=== PATIENT | male | born 1955 | race Caucasian/White ===

== ENCOUNTER 2018-07-07 06:16 | Inpatient (IN) ==
[~2018-07-07 06:16] MED LIST: Bacitracin 50,000 UNIT, Polymyxin B Sulfate 500,000 UNIT, Sodium Chloride IRRigation 1,... IR ONE
[2018-07-07] MEDS ORDERED: CeFAZolin Syr 2,000MG/20 ML 2,000 MG/20 ML SYRINGE IVPB ONE (06:40)
[2018-07-07] MEDS ORDERED: Albuterol 2.5 MG/3 ML NEBULIZER IH ONE (06:40)
[2018-07-07] MEDS: Ringers Solution, Lactated 1,000 ML IVC SCH ×3 (07:07→20:49)
[2018-07-07] MEDS ORDERED: Lidocaine -MPF 4% 5 ML AMPUL ONE (07:12)
[2018-07-07] MEDS ORDERED: *HR* Midazolam HCl 2 MG/2 ML VIAL ONE (07:15)
[2018-07-07] MEDS ORDERED: Ondansetron 4 MG/2 ML VIAL ONE (07:15)
[2018-07-07] MEDS ORDERED: *HR* FentaNYL (PF) 100 MCG/2 ML VIAL ONE (07:15)
[2018-07-07] MEDS ORDERED: Dexamethasone 4 MG/ML VIAL ONE (07:15)
[2018-07-07] MEDS ORDERED: *HR* Rocuronium Bromide 50 MG/5 ML VIAL ONE ×2 (07:15→09:09)
[2018-07-07] MEDS ORDERED: *HR* Propofol 200 MG/20 ML VIAL IVP ONE (07:15)
[2018-07-07] MEDS ORDERED: *HR* Succinylcholine 200 MG/10 ML VIAL IVP ONE (07:15)
[2018-07-07] MEDS ORDERED: Lidocaine -MPF 2% 2 ML VIAL ONE (07:15)
[2018-07-07] MEDS ORDERED: Neostigmine Methylsulfate 3 MG/3 ML SYRINGE ONE (07:15)
[2018-07-07] MEDS ORDERED: *HR* Remifentanil 1 MG VIAL IVP ONE (07:26)
--- NOTE | 2018-07-07 07:40 | Anesthesia Evaluation PreOp ---
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) Other Medical History: Diabetes Type II (POORLY CONTROLLED - HbA1c 11.5), GERD (CONTROLLED) Alcohol Use: none Drug use: none Medications and Allergies Atorvastatin [Lipitor] 20 mg PO HS 04/03/16 [History] Insulin Glargine [Lantus] 40 unit SQ BID 04/03/16 [History] Losartan Potassium [Cozaar] 100 mg PO DAILY 04/03/16 [History] Ticagrelor [Brilinta] 90 mg PO BID 04/03/16 [History] amLODIPine [Norvasc] 10 mg PO DAILY 04/03/16 [History] metFORMIN [Glucophage] 1,000 mg PO BIDWM 04/03/16 [History] Aspirin [Lo-Dose Aspirin EC] 81 mg PO DAILY 07/07/18 [History] Meloxicam [Mobic] 15 mg PO DAILY 07/07/18 [History] Omeprazole [PriLOSEC] 40 mg PO DAILY 07/07/18 [History] Rivaroxaban [Xarelto] 20 mg PO DAILY 07/07/18 [History] Allergy/AdvReac Type Severity Reaction Status Date / Time No Known Allergies Allergy Verified 06/14/18 10:22 - Meds/Allergy Pre-op Review Medications Reviewed: Yes Allergies Reviewed: Yes Beta Blockers on Current Med List: No Anesthesia Results - Labs Laboratory Tests 04/18/16 06/14/18 06/14/18 15:06 11:10 11:10 Hgb 14.2 Hct 43.4 Plt Count 246 PT 9.9 INR 0.9 APTT 33.4 Sodium Potassium Creatinine Est GFR (Non-Af Amer) Hemoglobin A1c Calcium 9.5 06/14/18 06/14/18 11:10 11:10 Hgb Hct Plt Count PT INR APTT Sodium 137 Potassium 3.8 Creatinine 0.81 Est GFR (Non-Af Amer) > 60 Hemoglobin A1c 11.5 H Calcium Anesthesia Exam O2 Sat Height 1.6 m Height 1.6 m Weight 85.275 kg Weight 85.275 kg O2 Sat by Pulse Oximetry 97 Vital Signs Temp Pulse Resp BP Pulse Ox 98.1 F 100 18 128/85 97 07/07/18 06:51 07/07/18 06:51 07/07/18 06:51 07/07/18 06:51 07/07/18 06:51 Weight: 85 kg - BMI 33 NPO (# of Hours): >MN - HEENT Mallampati: II (BEARDED) Teeth: Missing, Poor dentition (EXTREMELY POOR DENTITION, MULTIPLE CARIES, MULTIPLE BROKEN TEETH) Oral Opening: Greater than 3 - AUTOMOTIVE VEHICLE INSPECTOR LOC: Oriented AUTOMOTIVE VEHICLE INSPECTOR Motor: Normal RUE, Normal LUE, Normal RLE, Normal Face, Deficit LLE (? MILD MOTOR WEAKNESS) - Cardiac Rhythm: Regular - Pulmonary Breath Sounds: bilateral Clear Respiratory Effort: Symmetrical Anesthesia Assess/Plan ASA Score: 4 Anesthetic Plan: General Monitoring Plan: Standard Monitors, A-Line (POSSIBLE) Recovery Plan: PACU Anes Supervising Prov Stmt: DISCUSSED CV RISK. DISCUSSED DENTAL INJURY.
[2018-07-07] MEDS ORDERED: Acetaminophen IV 1,000 MG/100 ML INFUS..BTL ONE (07:51)
[2018-07-07] MEDS ORDERED: *HR* Methadone 10 MG TABLET PO ONE ×2 (08:03→08:06)
--- NOTE | 2018-07-07 08:13 | History & Physical Report ---
Date of Encounter: 07/07/18 Time of Encounter: 08:05 24 Hour HP Update - Instructions Instructions: If the History and Physical is less than 30 days old and was completed prior to A.M. admission and or procedure and has NOT been updated on calendar day of procedure please complete this update prior to performing procedure. - Update Patient reports changes in Medical Condition: No Changes in examination, assessment, or condition: No Changes in Medication: No Preop tests/diagnostics Reviewed: Yes Pre-Op MRSA Screen: Negative Surgery Remains Indicated: Yes Consent for Planned Operative Procedure(s) Verified: Yes - Pre-Operative Checklist Preoperative Checklist Indicated: No Prophylactic Antibiotic Ordered: Yes Home Medications Include Beta Felix: No Beta Felix Taken Today (Day of Surgery): No Beta Felix Taken Yesterday (Day Prior to Surgery): No Is VTE Prophylaxis Indicated?: Yes
[2018-07-07] MEDS ORDERED: *HR* PHENYLEPHRINE 1,000 MCG/10 ML SYRINGE IVP ONE ×2 (08:31→11:37)
[2018-07-07] MEDS ORDERED: EPHEDrine 50 MG/ML VIAL ONE (08:41)
[2018-07-07] MEDS ORDERED: *HR* OxyCODONE Immed Rel 5 MG TABLET PO PRN (08:55)
[2018-07-07] MEDS ORDERED: Ipratropium/Albuterol Neb 3 ML IH ONE (08:55)
[2018-07-07] MEDS ORDERED: Ketorolac 30 MG/ML VIAL IVP ONE (08:55)
[2018-07-07] MEDS ORDERED: Insulin LISPRO 300 UNITS/3 ML VIAL SQ SCH (12:00)
--- NOTE | 2018-07-07 12:19 | Orthopedic Operative Note ---
Date of procedure: 07/07/18 Pre-op diagnosis: Spondylolisthesis, lumbar stenosis, lumbar radiculopathy Post-op diagnosis: same Operation/Findings: Posterior lumbar interbody fusion L3-S1: The patient successfully underwent general endotracheal anesthesia. The patient was given antibiotics prior to the start of the procedure. Compression boots and stockings were used for deep vein thrombosis prophylaxis. A Poe catheter was placed. Leads for neuro monitoring were placed on the upper and lower extremities. This included the cranium. The neuro monitoring personnel confirmed there were satisfactory readings prior to the start of the procedure. The patient was turned prone on the Nicolas table. The back was prepped and draped in the usual sterile fashion. An incision was was marked and centered over the involved L3-S1 levels in the mid line. The incision was deepened through the lumbar fascia. Bovie cautery and Lyn elevators were used to reflect the paraspinal musculature at the lateral extent of the transverse processes of the involved L3, L4, L5, and S1 levels. Rose clamps were placed over the spinous L4 and L5 processes. An intraoperative lateral fluorograph was obtained. A conversation was held between the surgeon and radiologist and both confirmed we had the correct operative levels. We then placed pedicle screws in standard fashion with the aid of fluoroscopy and anatomic landmarks. Briefly a starter awl was used. A gearshift was subsequently used to enter the corporate pilot hole via a transpedicular route into the vertebral body. The corporate pilot hole was tapped with an undersized instrument, and subsequently six 6.5 x 40 mm pedicle screws were placed bilaterally at L5 and S1 levels, and unilateral screws were placed on the right at L3 and on the left at L4. The screws were tested with the aid of the neurologic monitoring staff via pedicle screw stimulation. All reading suggested there was no significant cortical wall breech. The screws were also evaluated fluoro- graphically and appeared to be in satisfactory position. We then turned our attention to the decompression portion of the procedure. We removed the supraspinous and interspinous ligaments and subsequently the insertion of the ligamentum flavum on the undersurface of the proximal L5 lamina was dislodged with a curette. We then removed the ligamentum flavum as well as undercut the L5-S1 facets at this L5-S1 level to decompress the lateral recesses. We also performed a L5 laminectomy. We proceeded proximally to the L4-5 level and removed the supraspinous ligaments, undercut the L4-5 facets, did partial medial facetectomies, and performed an L4 laminectomy. We then moved proximally to the L3-4 level and again decompressed this level by undercutting the facets, removing the supraspinous and interspinous ligaments, and doing partial medial facetectomies. We also did a partial L3 laminectomy. After the decompression, which was over and above that which was required to place the interbody graft, the foramen and traversing roots at the L3-4, L4-5, and L5-S1 levels were found to be free and patent. We then protected the neural elements including the thecal sac and traversing nerve root on the right at L5- S1 with a dural retractor. We made an annulotomy into the L5-S1 disc space and then removed entire disc material using Pituitary instruments. We trialed various size grafts after the endplates were prepared for graft insertion. A 10 x 26 enter body graft fit well within the L5-S1 disc space. We obtained some bone from the right posterior superior iliac spine through us a separate incision and combined with this with the bone which we had saved from the L3, L4, and L5 laminectomies portion of the procedure. This autograft bone was first placed in the anterior portion of the L5-S1 disc space and additional bone was placed within the interbody graft spacer. We then placed the interbody graft spacer obliquely across the L5-S1 disc space towards the midline while protecting the neural elements with a root retractor. When the graft was found to be in satisfactory position the highway patrol officer was removed. We then copiously irrigated the wound. We then decorticated the L3, L4, L5 transverse processes as well as the L3-4, L4-5, and L5-S1 facet joints of the involved levels to aid in the posterolateral fusion. We also placed some bone and proximal portion of the sacrum at the L5-S1 level. We placed autograft bone in the lateral gutters over these regions. We then placed rods within the screw heads of the involved L3-S1 levels on the right and L4-S1 levels on the left and first locked the distal screws and then subsequently locked the proximal screws so as to improve and reduce the spondylolisthesis previously seen. We then closed the wound in layers with 1 Vicryl for the fascia, 2-0 Vicryl. Subcutaneous tissue, and Salvador mabond was used for skin closure. Sterile dressings were placed over the wound. The patient was turned supine on a hospital bed and extubated. All sponge instruments and needle counts were correct at the end of the procedure. The patient tolerated the procedure well without complications. Anesthesia: GETA Surgeon: Arslan Irizarry Jr Was there an miller head assistant wet process present: No Estimated blood loss (cc): 300 Specimen: None Condition: stable Disposition: PACU
[2018-07-07] MEDS: *HR* HYDROmorphone (PF) 1 MG/ML SYRINGE IVP PRN ×3 (12:43→12:57)
--- NOTE | 2018-07-07 13:31 | Anesthesia Evaluation Post Op ---
Date of Encounter: 07/07/18 Time of Encounter: 13:30 - Discharge PostOp Status: Transfer Patient to floor (Patient's vital signs have been reviewed. Patient is stable postoperatively and has adequately recovered from anesthesia. Patient is determined to have stable airway patency and respiratory function including respiratory rate and oxygen saturation. Patient has a stable heart rate, blood pressure and adequate hydration. Patients mental status is acceptable. Patients temperature is appropriate. Pain and nausea are adequately controlled.)
[2018-07-07] MEDS ORDERED: Naloxone 0.4 MG/ML INJ IVP PRN (13:39)
[2018-07-07] MEDS ORDERED: Acetaminophen 325 MG TABLET PO PRN (13:39)
[2018-07-07] MEDS ORDERED: Ondansetron 4 MG/2 ML VIAL IVP PRN (13:39)
[2018-07-07] MEDS: *HR* HYDROcodone/Acet 5/325 mg TABLET PO PRN (15:02)
[2018-07-07] MEDS ORDERED: *HR* OxyCODONE Immed Rel 5 MG TABLET PO SCH (16:00)
[2018-07-07] MEDS: *HR* Metformin 500 MG TABLET PO SCH (17:27)
[2018-07-07] MEDS ORDERED: *HR* Dextrose 50 % in Water (Syg) 50 ML SYRINGE IVP PRN (17:30)
[2018-07-07] MEDS ORDERED: Dextrose Gel 15 GM/37.5 ML TUBE PO PRN ×2 (17:30)
[2018-07-07] MEDS ORDERED: D5% in Water 1,000 ML IVC PRN (17:30)
[2018-07-07] MEDS: *HR* OxyCODONE Immed Rel 5 MG TABLET PO PRN ×2 (20:13→23:57)
[2018-07-07] MEDS: *HR* Ticagrelor 90 MG TABLET PO SCH (20:13)
[2018-07-07] MEDS: Insulin LISPRO 300 UNITS/3 ML VIAL SQ SCH (20:50)
[2018-07-07] MEDS ORDERED: Insulin DETEMIR 100 UNIT/ML X5UNITS SQ SCH (21:00)
[2018-07-07] MEDS: Insulin DETEMIR 100 UNIT/ML X5UNITS SQ SCH (21:27)
[2018-07-08] MEDS: *HR* OxyCODONE Immed Rel 5 MG TABLET PO PRN ×4 (05:04→23:17)
[2018-07-08] MEDS: Ringers Solution, Lactated 1,000 ML IVC SCH (07:40)
[2018-07-08] MEDS: amLODIPine 5 MG TABLET PO SCH (08:12)
[2018-07-08] MEDS: *HR* Metformin 500 MG TABLET PO SCH ×2 (08:12→17:00)
[2018-07-08] MEDS: Aspirin Enteric Coated 81 MG Tablet PO SCH (08:12)
[2018-07-08] MEDS: Insulin LISPRO 300 UNITS/3 ML VIAL SQ SCH ×4 (08:13→20:31)
--- NOTE | 2018-07-08 08:49 | Orthopedics Progress Note ---
Date of Encounter: 07/08/18 Time of Encounter: 08:47 - Assessment and Plan (1) Spondylolisthesis Current Visit: Yes Status: Chronic Qualifiers: Spinal region: unspecified Qualified Code(s): M43.10 - Spondylolisthesis, site unspecified (2) Lumbar stenosis Current Visit: Yes Status: Chronic Qualifiers: Neurogenic claudication status: unspecified Qualified Code(s): M48.061 - Spinal stenosis, lumbar region without neurogenic claudication (3) Lumbar radiculopathy Current Visit: Yes Status: Chronic (4) Status post lumbar spinal fusion Current Visit: Yes Status: Acute Subjective Principal diagnosis: s/p lumbar fusion Interval history: POD#1 Date of procedure: 07/07/18 Pre-op diagnosis: Spondylolisthesis, lumbar stenosis, lumbar radiculopathy Post-op diagnosis: same Operation/Findings: Posterior lumbar interbody fusion L3-S1 Afebrile vital signs are stable. Dressing is clean dry and intact. Neurovascularly intact with regard to bilateral lower extremities. Fires all upper and lower extremity motor groups. Assessment :stable. Plan mobilize ,continue analgesics, discharge planning. Bleeding from incision site: Hold antiplatelets CBC, PT/INR, and BMP stat Continue fluids and clears- patient has yet to pass flatus Progress with PT/OT Discharge planning per PT recommendation Objective Vital signs: Vital Signs Temp Pulse Resp BP Pulse Ox 07/08/18 06:59 98.0 F 97 18 148/70 98 07/08/18 04:32 98.7 F 90 18 159/93 98 07/08/18 01:18 98.3 F 105 16 151/71 99 07/07/18 20:42 91 99 07/07/18 20:14 98.3 F 96 16 105/62 07/07/18 16:00 97.8 F 107 17 102/65 07/07/18 14:48 97.9 F 116 15 132/76 07/07/18 14:10 97.9 F 104 12 115/80 98 07/07/18 13:39 97.8 F 104 12 133/80 97 07/07/18 13:21 91 12 126/64 95 07/07/18 13:11 100 12 116/97 94 07/07/18 13:01 98.7 F 100 12 124/79 93 07/07/18 12:51 104 14 124/78 97 07/07/18 12:41 105 16 149/100 96 07/07/18 12:31 97.9 F 110 16 155/102 99 Intake and Output 07/07/18 07/08/18 07/08/18 23:59 07:59 15:59 Intake Total 250 / 250 1350 / 1350 Output Total 275 / 275 825 / 825 Balance -25 / -25 525 / 525 Intake: IV Fluids 200 / 200 1000 / 1000 Ofirmev 1,000 mg/100 ml 1,000 100 / 100 mg In 100 ml @ 0 mls/hr .ROUTE .STK-MED ONE Rx#:[id number] Lactated Ringers 1,000 ML @ 100 1000 / 1000 mls/hr IVC .Q10H [place] Rx#: [id number] Ancef 2,000 MG In 0.9 % Sodium 100 / 100 Chloride 100 ML @ 200 mls/hr IVPB Q8HR [facility] Rx#:[id number] Oral 50 / 50 350 / 350 Output: Catheter 275 / 275 825 / 825 Other: Weight 88.3 kg Blood Glucose* 247 166 Patient Weight 07/08/18 23:59 Weight 88.3 kg - Labs CBC & BMP: 07/08/18 09:15 07/08/18 09:15 Labs: Abnormal lab results POC Glucose 271 mg/dL (70-99) H 07/07/18 17:06 - VTE Documentation of Mechanical Device: Graduated compression elastic hosiery Consult Discharge Plan - Plan Referrals: aSrita Partida, GEOPHYSICAL LABORATORY CHIEF [Primary Care Provider] -
[2018-07-08] MEDS ORDERED: *HR* Rivaroxaban 10 MG TABLET PO SCH (09:00)
[2018-07-08] MEDS: *HR* Ticagrelor 90 MG TABLET PO SCH (09:14)
[2018-07-08 09:31] LABS: Basophils % 0.3 %; Eosinophils % 0.2 %; Hematocrit 30.1 % (37.5-50.1); Hemoglobin 10.1 g/dL (12.9-16.9); Immature Granulocytes % 0.2 % (0-4); Lymphocytes # 2.9 K/mcL (0.6-4.6); Lymphocytes % 27.1 %; Mean Corpuscular HGB Conc 33.6 g/dL (31.6-35.5); Mean Corpuscular Hemoglobin 30.2 pg (28.0-33.3); Mean Corpuscular Volume 90.1 fL (83.0-100.0); Monocytes # 1.1 K/mcL (0.0-1.3); Monocytes % 10.4 %; Neutrophils # 6.5 K/mcL (1.6-8.9); Platelet Count 253 K/mcL (140-400); Red Blood Count 3.34 M/mcL (4.19-5.50); Red Cell Distribution Width 12.9 % (11.5-14.5); Segmented Neutrophils % 61.8 %
[2018-07-08 09:38] LABS: INR 1.1; Prothrombin Time 12.6 Seconds (9.4-12.1)
[2018-07-08 09:41] LABS: Activated Partial Thrombo Time 28.6 Seconds (26.0-36.0)
[2018-07-08 09:48] LABS: BUN/Creatinine Ratio 19 (6-26); Blood Urea Nitrogen 15 mg/dL (8-23); Calcium 8.9 mg/dL (8.6-10.3); Carbon Dioxide 24 mEq/L (23-29); Chloride 103 mEq/L (98-107); Glucose 140 mg/dL (70-105); Osmolality,Calculated 283 (280-300); Potassium 3.7 mEq/L (3.5-5.1); Sodium 135 mEq/L (136-145); eGFR For Non-African Americans > 60 (> 60)
[2018-07-08] MEDS: Insulin DETEMIR 100 UNIT/ML X5UNITS SQ SCH ×2 (09:50→20:36)
[2018-07-08] MEDS ORDERED: Temazepam 15 MG CAPSULE PO PRN (16:30)
[2018-07-09] MEDS: *HR* OxyCODONE Immed Rel 5 MG TABLET PO PRN ×3 (04:34→20:32)
[2018-07-09] MEDS: *HR* Metformin 500 MG TABLET PO SCH ×2 (08:34→17:04)
[2018-07-09] MEDS: Aspirin Enteric Coated 81 MG Tablet PO SCH (08:34)
[2018-07-09] MEDS: amLODIPine 5 MG TABLET PO SCH (08:34)
[2018-07-09] MEDS: Insulin LISPRO 300 UNITS/3 ML VIAL SQ SCH ×4 (08:35→22:00)
[2018-07-09] MEDS: Insulin DETEMIR 100 UNIT/ML X5UNITS SQ SCH ×2 (08:35→20:29)
--- NOTE | 2018-07-09 08:39 | Orthopedics Progress Note ---
Date of Encounter: 07/09/18 Time of Encounter: 08:39 - Assessment and Plan (1) Spondylolisthesis Current Visit: Yes Status: Chronic Qualifiers: Spinal region: unspecified Qualified Code(s): M43.10 - Spondylolisthesis, site unspecified (2) Lumbar stenosis Current Visit: Yes Status: Chronic Qualifiers: Neurogenic claudication status: unspecified Qualified Code(s): M48.061 - Spinal stenosis, lumbar region without neurogenic claudication (3) Lumbar radiculopathy Current Visit: Yes Status: Chronic (4) Status post lumbar spinal fusion Current Visit: Yes Status: Acute Subjective Principal diagnosis: s/p lumbar fusion Interval history: POD#1 Date of procedure: 07/07/18 Pre-op diagnosis: Spondylolisthesis, lumbar stenosis, lumbar radiculopathy Post-op diagnosis: same Operation/Findings: Posterior lumbar interbody fusion L3-S1 Afebrile vital signs are stable. Dressing is clean dry and intact. Neurovascularly intact with regard to bilateral lower extremities. Fires all upper and lower extremity motor groups. Assessment :stable. Plan mobilize ,continue analgesics, discharge planning. Bleeding from incision site: Hold antiplatelets CBC, PT/INR, and BMP stat Continue fluids and clears- patient has yet to pass flatus Progress with PT/OT Discharge planning per PT recommendation Objective Vital signs: Vital Signs Temp Pulse Resp BP Pulse Ox 07/09/18 07:09 98.8 F 94 16 138/81 92 07/09/18 03:00 98.9 F 92 18 162/72 96 07/08/18 22:52 99.5 F 100 14 127/67 93 07/08/18 18:53 99.2 F 100 20 149/70 96 07/08/18 14:51 98.4 F 87 16 126/78 94 07/08/18 10:17 98.2 F 85 18 128/71 92 Intake and Output 07/08/18 07/09/18 07/09/18 23:59 07:59 15:59 Intake Total 650 / 650 0 / 0 Output Total 350 / 350 250 / 250 Balance 300 / 300 -250 / -250 Intake: IV Fluids 100 / 100 Oral 550 / 550 0 / 0 Output: Urine 350 / 350 250 / 250 Other: Weight 88.4 kg Blood Glucose* 103 85 Patient Weight 07/09/18 23:59 Weight 88.4 kg - Labs CBC & BMP: 07/08/18 09:15 07/08/18 09:15 Labs: Abnormal lab results RBC 3.34 M/mcL (4.19-5.50) L 07/08/18 09:15 Hgb 10.1 g/dL (12.9-16.9) L 07/08/18 09:15 Hct 30.1 % (37.5-50.1) L 07/08/18 09:15 PT 12.6 Seconds (9.4-12.1) H 07/08/18 09:15 Sodium 135 mEq/L (136-145) L 07/08/18 09:15 Glucose 140 mg/dL (70-105) H 07/08/18 09:15 POC Glucose 100 mg/dL (70-99) H 07/08/18 16:29 - VTE Documentation of Mechanical Device: Intermittent pneumatic compression device Consult Discharge Plan - Plan Referrals: Sarita Partida, SCREEN PRINTING SUPERVISOR [Primary Care Provider] -
--- NOTE | 2018-07-09 18:44 | Spine Progress Note ---
Date of Encounter: 07/09/18 Time of Encounter: 18:43 Subjective Principal diagnosis: s/p lumbar fusion Interval history: The patient is without complaints. Complains of some back pain. Mobilizing poorly. Afebrile vital signs are stable. Incision is clean dry and intact. T here is some ecchymosis distally in the jae-incisional area. Neurovascularly intact with regard to bilateral lower extremities. Fires all upper and lower extremity motor groups. Assessment :stable. Plan mobilize ,continue analgesics, discharge planning. Objective Vital signs: Vital Signs Temp Pulse Resp BP Pulse Ox 07/09/18 14:50 99.4 F 103 16 149/83 95 07/09/18 11:11 97.9 F 98 17 133/59 96 07/09/18 07:09 98.8 F 94 16 138/81 92 07/09/18 03:00 98.9 F 92 18 162/72 96 07/08/18 22:52 99.5 F 100 14 127/67 93 07/08/18 18:53 99.2 F 100 20 149/70 96 Intake and Output 07/09/18 07/09/18 07/09/18 07:59 15:59 23:59 Intake Total 0 / 0 240 / 240 Output Total 250 / 250 200 / 200 Balance -250 / -250 40 / 40 Intake: Oral 0 / 0 240 / 240 Output: Urine 250 / 250 200 / 200 Other: Weight 88.4 kg Blood Glucose* 85 104 169 Patient Weight 07/09/18 23:59 Weight 88.4 kg - Labs CBC & BMP: 07/08/18 09:15 07/08/18 09:15 Labs: Abnormal lab results RBC 3.34 M/mcL (4.19-5.50) L 07/08/18 09:15 Hgb 10.1 g/dL (12.9-16.9) L 07/08/18 09:15 Hct 30.1 % (37.5-50.1) L 07/08/18 09:15 PT 12.6 Seconds (9.4-12.1) H 07/08/18 09:15 Sodium 135 mEq/L (136-145) L 07/08/18 09:15 Glucose 140 mg/dL (70-105) H 07/08/18 09:15 POC Glucose 100 mg/dL (70-99) H 07/08/18 16:29 Consult Discharge Plan - Plan Referrals: Sarita Partida CNP [Primary Care Provider] -
[2018-07-10] MEDS: *HR* OxyCODONE Immed Rel 5 MG TABLET PO PRN ×3 (04:11→20:45)
[2018-07-10] MEDS: Insulin LISPRO 300 UNITS/3 ML VIAL SQ SCH ×4 (08:16→21:00)
[2018-07-10] MEDS: *HR* Metformin 500 MG TABLET PO SCH ×2 (08:21→16:17)
[2018-07-10] MEDS: amLODIPine 5 MG TABLET PO SCH (08:21)
[2018-07-10] MEDS: Aspirin Enteric Coated 81 MG Tablet PO SCH (08:21)
[2018-07-10] MEDS: Insulin DETEMIR 100 UNIT/ML X5UNITS SQ SCH ×2 (08:29→20:50)
[2018-07-10] MEDS: *HR* HYDROcodone/Acet 5/325 mg TABLET PO PRN (08:29)
[2018-07-10] MEDS: Ringers Solution, Lactated 1,000 ML IVC SCH (13:03)
--- NOTE | 2018-07-10 13:05 | Spine Progress Note ---
Date of Encounter: 07/10/18 Time of Encounter: 13:04 Subjective Principal diagnosis: s/p lumbar fusion Interval history: The patient complains of some back pain. Mobilizing fairly. Afebrile vital signs are stable. Incision is clean dry and intact. Neurovascularly intact w ith regard to bilateral lower extremities. Fires all upper and lower extremity motor groups. Assessment :stable. Plan mobilize ,continue analgesics, discharge planning. Check lumbar x-ray after completion. Objective Vital signs: Vital Signs Temp Pulse Resp BP Pulse Ox 07/10/18 11:10 98.2 F 93 15 170/79 98 07/10/18 06:29 98.3 F 90 18 127/66 96 07/10/18 02:30 99.4 F 92 15 145/79 97 07/09/18 22:53 98.6 F 91 14 144/71 95 07/09/18 19:43 99.4 F 97 14 155/77 94 07/09/18 14:50 99.4 F 103 16 149/83 95 Intake and Output 07/09/18 07/10/18 07/10/18 23:59 07:59 15:59 Output Total 300 / 300 Balance -300 / -300 Output: Urine 300 / 300 Other: Blood Glucose* 146 74 92 - Labs CBC & BMP: 07/08/18 09:15 07/08/18 09:15 Labs: Abnormal lab results RBC 3.34 M/mcL (4.19-5.50) L 07/08/18 09:15 Hgb 10.1 g/dL (12.9-16.9) L 07/08/18 09:15 Hct 30.1 % (37.5-50.1) L 07/08/18 09:15 PT 12.6 Seconds (9.4-12.1) H 07/08/18 09:15 Sodium 135 mEq/L (136-145) L 07/08/18 09:15 Glucose 140 mg/dL (70-105) H 07/08/18 09:15 Consult Discharge Plan - Plan Referrals: Sarita Partida, SÁNCHEZ [Primary Care Provider] -
[2018-07-11] MEDS: Ringers Solution, Lactated 1,000 ML IVC SCH ×4 (07:36→16:06)
[2018-07-11] MEDS: Insulin LISPRO 300 UNITS/3 ML VIAL SQ SCH ×4 (07:46→22:29)
[2018-07-11] MEDS: *HR* OxyCODONE Immed Rel 5 MG TABLET PO PRN ×2 (07:47→17:55)
[2018-07-11] MEDS: *HR* Metformin 500 MG TABLET PO SCH ×2 (07:47→16:07)
[2018-07-11] MEDS: Aspirin Enteric Coated 81 MG Tablet PO SCH (07:47)
[2018-07-11] MEDS: amLODIPine 5 MG TABLET PO SCH (07:48)
[2018-07-11] MEDS: Insulin DETEMIR 100 UNIT/ML X5UNITS SQ SCH ×2 (07:53→22:30)
[2018-07-11] MEDS: *HR* HYDROcodone/Acet 5/325 mg TABLET PO PRN (10:59)
--- NOTE | 2018-07-11 12:09 | Spine Progress Note ---
Date of Encounter: 07/11/18 Time of Encounter: 12:07 Subjective Principal diagnosis: s/p lumbar fusion Interval history: The patient complains of some back pain. Mobilizing fairly. Afebrile vital signs are stable. Incision is clean dry and intact. Neurovascularly intact w ith regard to bilateral lower extremities. Fires all upper and lower extremity motor groups. Assessment :stable. Plan mobilize ,continue analgesics, discharge planning home health versus rehabilitation depending on level of mobilization. Objective Vital signs: Vital Signs Temp Pulse Resp BP Pulse Ox 07/11/18 10:40 98.1 F 90 17 154/67 99 07/11/18 07:46 95 07/11/18 07:25 97.8 F 88 20 131/67 95 07/11/18 03:02 98.1 F 71 14 94/54 98 07/10/18 23:09 98.2 F 85 14 143/76 98 07/10/18 19:15 98.1 F 89 16 133/78 98 07/10/18 15:49 99.6 F 82 16 131/68 94 Intake and Output 07/10/18 07/11/18 07/11/18 23:59 07:59 15:59 Intake Total 550 / 550 1000 / 1000 120 / 120 Output Total 525 / 525 0 / 0 Balance 25 / 25 1000 / 1000 120 / 120 Intake: IV Fluids 1000 / 1000 Lactated Ringers 1,000 ML @ 100 1000 / 1000 mls/hr IVC .Q10H [place] Rx#: [id number] Oral 550 / 550 0 / 0 120 / 120 Output: Urine 525 / 525 0 / 0 Other: Meal Dinner Breakfast Percent of Meal Consumed 0% 100% # Voids 1 Weight 87 kg Blood Glucose* 156 140 145 Patient Weight 07/11/18 23:59 Weight 87 kg - Labs CBC & BMP: 07/08/18 09:15 07/08/18 09:15 Labs: Abnormal lab results RBC 3.34 M/mcL (4.19-5.50) L 07/08/18 09:15 Hgb 10.1 g/dL (12.9-16.9) L 07/08/18 09:15 Hct 30.1 % (37.5-50.1) L 07/08/18 09:15 PT 12.6 Seconds (9.4-12.1) H 07/08/18 09:15 Sodium 135 mEq/L (136-145) L 07/08/18 09:15 Glucose 140 mg/dL (70-105) H 07/08/18 09:15 POC Glucose 140 mg/dL (70-99) H 07/11/18 07:31 Consult Discharge Plan - Plan Referrals: Sarita Partida, SÁNCHEZ [Primary Care Provider] -
[2018-07-11] MEDS: *HR* Ticagrelor 90 MG TABLET PO SCH (22:30)
[2018-07-12] MEDS: *HR* OxyCODONE Immed Rel 5 MG TABLET PO PRN ×3 (00:56→13:56)
[2018-07-12] MEDS: Aspirin Enteric Coated 81 MG Tablet PO SCH (08:27)
[2018-07-12] MEDS: amLODIPine 5 MG TABLET PO SCH (08:32)
[2018-07-12] MEDS: *HR* Metformin 500 MG TABLET PO SCH (08:32)
[2018-07-12] MEDS: *HR* Ticagrelor 90 MG TABLET PO SCH (08:33)
[2018-07-12] MEDS: Insulin DETEMIR 100 UNIT/ML X5UNITS SQ SCH (08:33)
[2018-07-12] MEDS: Insulin LISPRO 300 UNITS/3 ML VIAL SQ SCH ×2 (08:47→11:38)
--- NOTE | 2018-07-12 15:43 | Discharge Summary ---
Orders not resulted at time of discharge: Pending orders 07/07/18 XR fluoroscopy <1 hr [XR] Routine Date of Encounter: 07/12/18 Time of Encounter: 15:40 - Discharge Diagnosis (1) Spondylolisthesis Priority: Primary Status: Chronic Qualifiers: Spinal region: unspecified Qualified Code(s): M43.10 - Spondylolisthesis, site unspecified (2) Lumbar stenosis Priority: Primary Status: Chronic Qualifiers: Neurogenic claudication status: unspecified Qualified Code(s): M48.061 - Spinal stenosis, lumbar region without neurogenic claudication (3) Lumbar radiculopathy Priority: Primary Status: Chronic (4) Status post lumbar spinal fusion Priority: Primary Status: Acute - Hospital Course Hospital course: Mr. Romero is a 63 year old male Date of procedure: 07/07/18 Pre-op diagnosis: Spondylolisthesis, lumbar stenosis, lumbar radiculopathy Post-op diagnosis: same Operation/Findings: Posterior lumbar interbody fusion L3-S1 The patient had an uneventful postoperative course. Progressed from intravenous analgesic needs to oral analgesic needs only. Remained neurovascularly intact and mobilized satisfactorily. All intraoperative and/or postoperative radiographic studies were satisfactory. Patient is discharged with plan for rehabilitation and follow-up in 2 weeks post discharge on analgesic medication and patient's home medications. - Time Spent with Patient Total time spent providing and/or coordinating discharge services: - Discharge Medications Prescriptions: OxyCODONE Immed Rel [Roxicodone 5 MG] 5 mg PO Q6HR PRN 7 Days #28 tablet PRN Reason: Severe Pain Cyclobenzaprine [Flexeril] 10 mg PO TID PRN 7 Days #21 tablet PRN Reason: Spasms Docusate Sodium [Colace] 100 mg PO BID 5 Days #10 capsule Home Medications: Losartan Potassium [Cozaar] 100 mg PO DAILY 04/03/16 [History] Ticagrelor [Brilinta] 90 mg PO BID 04/03/16 [History] amLODIPine [Norvasc] 10 mg PO DAILY 04/03/16 [History] metFORMIN [Glucophage] 1,000 mg PO BIDWM 04/03/16 [History] Aspirin [Lo-Dose Aspirin EC] 81 mg PO DAILY 07/07/18 [History] Atorvastatin Calcium [Lipitor] 20 mg PO HS 07/07/18 [History] HYDROcodone/Acet 5/325 mg [Centre 5-325 mg] 1 tab PO BID PRN 07/07/18 [History] Insulin Glargine,Hum.rec.anlog [Basaglar Kwikpen U-100] 40 unit SQ BID 07/07/18 [History] Meloxicam [Mobic] 15 mg PO DAILY 07/07/18 [History] Omeprazole [PriLOSEC] 40 mg PO DAILY 07/07/18 [History] Rivaroxaban [Xarelto] 20 mg PO DAILY 07/07/18 [History] Cyclobenzaprine [Flexeril] 10 mg PO TID PRN 7 Days #21 tablet 07/12/18 [Rx] Docusate Sodium [Colace] 100 mg PO BID 5 Days #10 capsule 07/12/18 [Rx] OxyCODONE Immed Rel [Roxicodone 5 MG] 5 mg PO Q6HR PRN 7 Days #28 tablet [Rx] Allergies/Adverse Reactions: Allergy/AdvReac Type Severity Reaction Status Date / Time No Known Allergies Allergy Verified 06/14/18 10:22 Date of admission: 07/07/18 13:37 Primary care physician: Sarita Partida Consults: 07/07/18 13:39 Consult to Occupational Therapy [CONS] Routine Comment: Evaluate, develop and implement POC Reason for Consult: Postoperative rehabilitation Does patient have active BEDREST order?: No Is patient medically & hemodynamically stable?: Yes Patient assessed for mobility or mobilized this visit?: No Consult to Physical Therapy [CONS] Routine Comment: Evaluate, develop and implement POC Reason for Consult: Postoperative rehabilitation Does patient have active BEDREST order?: No Is patient medically & hemodynamically stable?: Yes Patient assessed for mobility or mobilized this visit?: No Consult to Spine Navigator [CONS] [CONS] Routine 07/07/18 13:59 Consult to Pastoral Services [CONS] Routine Comment: 07/09/18 12:06 Consult to Field Manager [CONS] Routine Reason for SW Consult: Discharge planning Discharging clinician: Arslan Irizarry Jr Anticipated date of discharge: 07/12/18 - VTE Documentation of Mechanical Device: Intermittent pneumatic compression device Labs on day of discharge: Labs from last 24 hours 07/11/18 07/10/18 15:59 21:14 POC Glucose 91 156 H - Impressions ITS Impressions Lumbar Spine X-Ray 07/07/18 00:00 IMPRESSION: Posterior fusion of L3 through S1 without convincing hardware complication on this single lateral view. D/ / Frantz Hernandez MD / Frantz Hernandez MD Interpreting Provider: Frantz Hernandez MD Lumbar Spine X-Ray 07/10/18 08:20 IMPRESSION: No evidence of hardware complication or acute osseous abnormality. D/ / Alexi Jesus MD / Alexi Jesus MD Interpreting Provider: Alexi Jesus MD - Patient Status Disposition: Home, Self-Care Condition: Good Functional capacity at discharge: uses cane/walker Overall status at discharge: patient is progressing back to baseline - Discharge Instructions Follow Up With: Sarita Partida CNP [Primary Care Provider] - - Diet and Activity Activity: as per physical therapy Diet: advance to your usual diet
[2018-07-12 17:03] VITALS: BP 147/84
== END 2018-07-12 18:20 | disposition home or self-care (01) | DRG 455 ==
LOC: SAMDAY 06:16 → 3NENU 13:37
PROVIDERS: ADMIT Orthopaedic Surgery Orthopaedic Surgery of the Spine; ATTEND Orthopaedic Surgery Orthopaedic Surgery of the Spine

== ENCOUNTER 2021-11-22 19:13 | Observation (INO) ==
[2021-11-22] MEDS ORDERED: Melatonin 3 MG TABLET PO PRN (21:21)
[2021-11-22] MEDS ORDERED: Ondansetron 4 MG/2 ML VIAL IVP PRN (21:21)
[2021-11-22] MEDS ORDERED: Naloxone 0.4 MG/ML INJ IVP PRN (21:21)
[2021-11-22] MEDS ORDERED: 0.9 % Sodium Chloride 1,000 ML IVC SCH (21:30)
[2021-11-22 22:18] LABS: Amphetamine Screen,Urine Negative ng/mL (Cutoff=1000); Barbiturate Screen,Urine Negative ng/mL (Cutoff=200); Benzodiazepines Screen,Urine Negative ng/mL (Cutoff=200); Cannabinoid Screen,Urine Negative ng/mL (Cutoff = 50); Cocaine Screen,Urine Negative ng/mL (Cutoff= 300); Opiate Screen,Urine Negative ng/mL (Cutoff=300); Phencyclidine Screen,Urine Negative ng/mL (Cutoff=25)
[2021-11-22 22:24] LABS: Hematocrit 39.9 % (37.5-50.1); Hemoglobin 13.5 g/dL (12.9-16.9); Mean Corpuscular HGB Conc 33.8 g/dL (31.6-35.5); Mean Corpuscular Hemoglobin 31.4 pg (28.0-33.3); Mean Corpuscular Volume 92.8 fL (83.0-100.0); Mean Platelet Volume 10.4 fL (9.4-12.4); Monocytes # 0.2 K/mcL (0.0-1.3); Platelet Count 154 K/mcL (140-400); Red Cell Distribution Width 13.5 % (11.5-14.5); White Blood Count 2.5 K/mcL (4.3-11.1)
[2021-11-22 22:56] LABS: Neutrophils # 1.3 K/mcL (1.6-8.9); Platelet Estimate Normal (Normal)
[2021-11-22] MEDS ORDERED: D5% in Water 1,000 ML IVC PRN (23:03)
[2021-11-22] MEDS ORDERED: Dextrose 4 GM Chewable Tablets PO PRN ×2 (23:03)
[2021-11-22] MEDS ORDERED: *HR* Dextrose 50 % in Water (Syg) 50 ML SYRINGE IVP PRN (23:03)
[2021-11-22 23:37] LABS: Adenovirus Not Detected (Not Detect); Bordetella Pertussis Not Detected (Not Detect); Chlamydophila pneumoniae Not Detected (Not Detect); Coronavirus 229E Not Detected (Not Detect); Coronavirus HKU1 Not Detected (Not Detect); Coronavirus NL63 Not Detected (Not Detect); Coronavirus OC43 Not Detected (Not Detect); Human Metapneumovirus Not Detected (Not Detect); Human Rhinovirus/Enterovirus Not Detected (Not Detect); Influenza A Subtype 2009 H1 Not Detected (Not Detect); Influenza B Not Detected (Not Detect); Mycoplasma pneumoniae Not Detected (Not Detect); Parainfluenza Virus 1 Not Detected (Not Detect); Parainfluenza Virus 2 Not Detected (Not Detect); Parainfluenza Virus 3 Not Detected (Not Detect); Parainfluenza Virus 4 Not Detected (Not Detect); Respiratory Syncytial Virus Not Detected (Not Detect); SARS-CoV-2 Not Detected (Not Detect)
[2021-11-22] MEDS: amLODIPine 5 MG TABLET PO SCH (23:51)
[2021-11-22] MEDS: lisinopriL 10 MG TABLET PO SCH (23:51)
[2021-11-23] MEDS ORDERED: Gadolinium Contrast Agent (WT Based) IV PRN (00:05)
[2021-11-23] MEDS ORDERED: Aspirin 325 MG TABLET PO ONE (03:02)
[2021-11-23] MEDS ORDERED: Nitroglycerin 0.4 MG TAB.SUBL SL PRN (03:07)
[2021-11-23 04:27] LABS: Hematocrit 38.6 % (37.5-50.1); Hemoglobin 12.9 g/dL (12.9-16.9); Mean Corpuscular HGB Conc 33.4 g/dL (31.6-35.5); Mean Corpuscular Hemoglobin 30.6 pg (28.0-33.3); Mean Corpuscular Volume 91.7 fL (83.0-100.0); Mean Platelet Volume 10.5 fL (9.4-12.4); Platelet Count 143 K/mcL (140-400); Red Blood Count 4.21 M/mcL (4.19-5.50); Red Cell Distribution Width 13.4 % (11.5-14.5); White Blood Count 2.4 K/mcL (4.3-11.1)
[2021-11-23 05:07] LABS: C-Reactive Protein 25 mg/L (Less than 10); Lactate Dehydrogenase 284 Units/L (140-271)
[2021-11-23 05:09] LABS: Alanine Aminotransferase 65 Units/L (7-52); Albumin 3.6 g/dL (3.5-5.7); Albumin/Globulin Ratio 1.3 (1.1-2.2); Alkaline Phosphatase 82 Units/L (34-104); Aspartate Amino Transferase 72 Units/L (13-39); BUN/Creatinine Ratio 19 (6-26); Bilirubin,Total 0.7 mg/dL (0.3-1.0); Blood Urea Nitrogen 14 mg/dL (8-23); Calcium 8.5 mg/dL (8.6-10.3); Carbon Dioxide 21 mEq/L (23-29); Chloride 106 mEq/L (98-107); Globulin 2.7 g/dL (2.4-3.5); Glucose 143 mg/dL (70-105); Osmolality,Calculated 283 (280-300); Potassium 3.3 mEq/L (3.5-5.1); Sodium 135 mEq/L (136-145); Total Protein 6.3 g/dL (6.4-8.9); Troponin I < 0.03 ng/mL (< 0.04); eGFR For African Americans > 60 (> 60); eGFR For Non-African Americans > 60 (> 60)
[2021-11-23] MEDS ORDERED: Isovue-370 500 ML BOTTLE IVP ONE (07:38)
[2021-11-23] MEDS ORDERED: Perflutren Lipid Microsphere 1.3 ML in 0.9 % Sodium Chloride 8.7 ML IVP PRN (07:39)
[2021-11-23] MEDS: Insulin LISPRO 300 UNITS/3 ML VIAL SUBQ SCH ×3 (07:40→16:15)
[2021-11-23] MEDS ORDERED: Vancomycin 1,250 MG/262.5 ML IV.SOLN IVPB ONE (08:20)
[2021-11-23] MEDS ORDERED: *HR* Rivaroxaban 10 MG TABLET PO SCH (09:00)
[2021-11-23] MEDS: Piperacillin/Tazobactam 3.375 GM in 0.9 % Sodium Chloride Mini Bag 100 ML IVPB SCH ×3 (09:15→22:55)
[2021-11-23] MEDS: lisinopriL 10 MG TABLET PO SCH (09:16)
[2021-11-23] MEDS: amLODIPine 5 MG TABLET PO SCH (09:16)
[2021-11-23] MEDS ORDERED: GADOBUTROL 30 MMOL/30 ML VIAL IVP ONE (09:32)
[2021-11-23] MEDS: Nicotine 21 MG PATCH.TD24 TD SCH (11:31)
[2021-11-23] MEDS ORDERED: lisinopriL 10 MG TABLET PO ONE (12:12)
[2021-11-23] MEDS ORDERED: Doxycycline 100 MG CAPSULE PO ONE (12:50)
[2021-11-23] MEDS ORDERED: *HR* HYDROcodone/Acet 7.5/325 mg TABLET PO PRN (15:05)
[2021-11-23] MEDS: Acetaminophen 325 MG TABLET PO PRN (15:27)
[2021-11-23 19:50] LABS: Bilirubin,Urine Negative (Negative); Blood,Urine Negative (Negative); Clarity,Urine Clear (Clear); Color,Urine Light-Yellow (Yellow); Glucose,Urine (UA) 150 mg/dL (Normal); Ketones,Urine Negative (Negative); Leukocyte Esterase,Urine Negative (Negative); Nitrite,Urine Negative (Negative); PH,Urine 6.5 pH Units (5.0-8.0); Protein,Urine Negative (Neg-Trace); RBC,Urine 0-3 per hpf (0-3); Specific Gravity,Urine 1.009 (1.010-1.025); Squamous Epithelial Cell,Urine Few per hpf (None-Few); Urobilinogen,Urine Normal (Normal); WBC,Urine 0-3 per hpf (0-3)
[2021-11-23] MEDS: Vancomycin 1,250 MG/262.5 ML IV.SOLN IVPB SCH (19:57)
[2021-11-23] MEDS: Gabapentin 300 MG CAPSULE PO SCH (19:58)
[2021-11-23] MEDS: *HR* Heparin 5,000 UNIT/ML VIAL SQ SCH (21:51)
[2021-11-24] MEDS: Acetaminophen 325 MG TABLET PO PRN (02:38)
[2021-11-24] MEDS: *HR* Heparin 5,000 UNIT/ML VIAL SQ SCH (04:32)
[2021-11-24 06:22] LABS: Basophils % 1.2 %; Eosinophils % 0.6 %; Red Cell Distribution Width 13.2 % (11.5-14.5)
[2021-11-24 06:24] LABS: Hematocrit 38.1 % (37.5-50.1); Hemoglobin 13.1 g/dL (12.9-16.9); Immature Granulocytes % 0.6 % (0-4); Lymphocytes # 0.5 K/mcL (0.6-4.6); Lymphocytes % 29.4 %; Mean Corpuscular HGB Conc 34.4 g/dL (31.6-35.5); Mean Corpuscular Hemoglobin 30.6 pg (28.0-33.3); Mean Platelet Volume 11.2 fL (9.4-12.4); Monocytes # 0.1 K/mcL (0.0-1.3); Monocytes % 5.5 %; Platelet Count 117 K/mcL (140-400); Red Blood Count 4.28 M/mcL (4.19-5.50); Segmented Neutrophils % 62.7 %; White Blood Count 1.6 K/mcL (4.3-11.1)
[2021-11-24 06:25] LABS: Alanine Aminotransferase 101 Units/L (7-52); Albumin 3.6 g/dL (3.5-5.7); Albumin/Globulin Ratio 1.4 (1.1-2.2); Alkaline Phosphatase 102 Units/L (34-104); Aspartate Amino Transferase 121 Units/L (13-39); BUN/Creatinine Ratio 14 (6-26); Bilirubin,Direct 0.9 mg/dL (0.0-0.2); Bilirubin,Indirect 0.7 mg/dL (0.0-1.0); Bilirubin,Total 1.6 mg/dL (0.3-1.0); Blood Urea Nitrogen 13 mg/dL (8-23); Calcium 8.5 mg/dL (8.6-10.3); Carbon Dioxide 22 mEq/L (23-29); Chloride 102 mEq/L (98-107); Creatine Kinase 460 Units/L (30-223); Globulin 2.6 g/dL (2.4-3.5); Glucose 183 mg/dL (70-105); Magnesium 1.6 mg/dL (1.6-2.6); Osmolality,Calculated 275 (280-300); Potassium 3.2 mEq/L (3.5-5.1); Sodium 130 mEq/L (136-145); Total Protein 6.2 g/dL (6.4-8.9); eGFR For African Americans > 60 (> 60); eGFR For Non-African Americans > 60 (> 60)
[2021-11-24] MEDS ORDERED: 0.9 % Sodium Chloride 1,000 ML IVC SCH (07:45)
[2021-11-24 08:37] VITALS: BP 176/81; PULSE 89; TEMP 98.2; O2SAT 98
[2021-11-24] MEDS ORDERED: Magnesium Oxide 400 MG TABLET PO SCH (09:00)
[2021-11-24] MEDS ORDERED: Aspirin Enteric Coated 81 MG Tablet PO SCH (09:00)
[2021-11-24] MEDS ORDERED: Potassium Chloride Elixir 20 MEQ/15 ML UDC PO ONE (09:00)
[2021-11-24] MEDS ORDERED: lisinopriL 20 MG TABLET PO SCH (09:00)
[2021-11-24] MEDS: Gabapentin 300 MG CAPSULE PO SCH (09:20)
[2021-11-24] MEDS: amLODIPine 5 MG TABLET PO SCH (09:21)
[2021-11-24] MEDS: Nicotine 21 MG PATCH.TD24 TD SCH (09:21)
[2021-11-24] MEDS: Piperacillin/Tazobactam 3.375 GM in 0.9 % Sodium Chloride Mini Bag 100 ML IVPB SCH (09:22)
[2021-11-24] MEDS: Insulin LISPRO 300 UNITS/3 ML VIAL SUBQ SCH ×2 (09:22→12:20)
[2021-11-24] MEDS: Vancomycin 1,250 MG/262.5 ML IV.SOLN IVPB SCH (09:24)
[2021-11-24 10:17] LABS: Hepatitis B Surface Antigen Nonreactive (Nonreactive)
[2021-11-24 10:47] LABS: Hepatitis B Core IgM Nonreactive (Nonreactive)
[2021-11-24 10:48] LABS: Hepatitis C Virus Antibody Nonreactive (Nonreactive)
[2021-11-24 10:49] LABS: Hepatitis A Antibody IgM Nonreactive (Nonreactive)
[2021-11-24] MEDS ORDERED: *HR* Enoxaparin 80 MG/0.8 ML SYRINGE SQ SCH (18:00)
== END 2021-11-24 13:17 | disposition left against medical advice (07) ==
LOC: 3ANU → SUATTDRO 20:45
PROVIDERS: ADMIT Student in an Organized Health Care Education/Training Program; ATTEND Internal Medicine